=== PATIENT | female | born 1985 | race Caucasian/White ===

== ENCOUNTER 2016-05-29 10:09 | Day surgery (SDC) | payer BC ==
[~2016-05-29] VITALS: Ht 170.2 cm; Wt 86.2 kg
[~2016-05-29 10:09] MED LIST: ALLEGRA ALLERG180 MG PO; DOCUSATE SODIU100 MG PO; HYDROCODON-ACE1 EAC7 PO; IBUPROFEN800 MG PO; MAGNESIUM400 M1 PO; MOBIC15 MG PO; PRENATAL TABLE1 EAC3 PO
== END 2016-05-29 11:50 | disposition home or self-care (01) ==
LOC: PAIN 10:09 → SDC 10:45 → PAIN 10:45
DX: M47.816 Spondylosis without myelopathy or radiculopathy, lumbar region (principal); M54.5 Low back pain; F41.9 Anxiety disorder, unspecified; M79.1 Myalgia; D64.9 Anemia, unspecified; J30.9 Allergic rhinitis, unspecified; Z83.3 Family history of diabetes mellitus; Z82.49 Family history of ischemic heart disease and other diseases of the circulatory system; Z87.891 Personal history of nicotine dependence
CPT/HCPCS: J1030; J2250; J3010; S0020

== ENCOUNTER 2016-06-05 10:18 | Day surgery (SDC) | payer BC ==
[~2016-06-05] VITALS: Ht 170.2 cm; Wt 86.2 kg
== END 2016-06-05 11:35 | disposition home or self-care (01) ==
LOC: PAIN 10:18 → SDC 10:45 → PAIN 11:35
PROC: 015B3ZZ Destruction of Lumbar Nerve, Percutaneous Approach (ICD-10-PCS; principal; 2016-06-05)
DX: M47.816 Spondylosis without myelopathy or radiculopathy, lumbar region (principal); Z87.891 Personal history of nicotine dependence
CPT/HCPCS: J1030; J2250; J3010; S0020